=== PATIENT | male | born 1945 ===

== ENCOUNTER 2017-09-05 08:21 | Day surgery (SDC) | payer MEDICARE, OTHER ==
[~2017-09-05 08:21] MED LIST: Lactated Ringers 1,000 ML IV SCH; Lidocaine 1% 4 ML ONE; Lidocaine 1%/Sod Bicarbonate in NS 8.4% 1 ML Syringe IV PRN; Propofol 200 MG/20 ML SDV ONE; Sodium Chloride 0.9% 10 ML Syringe FLUSH PRN
[2017-09-05] MEDS ORDERED: ceFAZolin 1 GM Vial ONE (08:40)
--- NOTE | 2017-09-05 09:59 | PCM.PREANE ---
Preanesthetic Assessment - Anesthesia/Transfusion/Family Hx Anesthesia History: Prior Anesthesia Without Reaction Family History of Anesthesia Reaction: No Transfusion History: No Prior Transfusion(s) Intubation History: Unknown - Review of Systems General: No Symptoms Pulmonary: No Symptoms Cardiovascular: No Symptoms, Other (Hypertension) Gastrointestinal: No Symptoms Neurological: Other (Occasional Back Pain) Other: Reports: Neck Pain (From neck mass.) - Physical Assessment NPO Status Date: 09/04/17 NPO Status Time: 22:00 O2 Sat by Pulse Oximetry: 92 Respiratory Rate: 16 Vital Signs: Last Vital Signs Temp 36.7 C 09/05/17 08:30 Pulse 87 09/05/17 08:30 Resp 16 09/05/17 08:30 BP 178/87 H 09/05/17 08:30 Pulse Ox 92 L 09/05/17 08:30 Height: 1.78 m Weight: 88.451 kg ASA Class: 2 Mental Status: Alert & Oriented x3 Airway Class: Mallampati = 2 Dentition: Reports: Normal Dentition Thyro-Mental Finger Breadths: 2 Mouth Opening Finger Breadths: 3 ROM/Head Extension: Full Lungs: Clear to Auscultation, Normal Respiratory Effort Cardiovascular: Regular Rate, Regular Rhythm - Allergies Allergies/Adverse Reactions: Allergies Allergy/AdvReac Type Severity Reaction Status Date / Time No Known Allergies Allergy Verified 09/04/17 13:45 - Acknowledgements Anesthesia Type Planned: MAC Pt an Appropriate Candidate for the Planned Anesthesia: Yes Alternatives and Risks of Anesthesia Discussed w Pt/Guardian: Yes Pt/Guardian Understands and Agrees with Anesthesia Plan: Yes PreAnesthesia Questionnaire HEENT History: Reports: Other (See Below) Other HEENT History: cerumen impacted Cardiovascular History: Reports: Hypertension Respiratory History: Reports: SOB Gastrointestinal History: Reports: None Genitourinary History: Reports: None SOAP WORKER History: Reports: None Musculoskeletal History: Reports: None Neurological History: Reports: Other (See Below) Other Neuro History: bells palsy Psychiatric History: Reports: None Endocrine/Metabolic History: Reports: None Hematologic History: Reports: None Immunologic History: Reports: None Oncologic (Cancer) History: Reports: None Dermatologic History: Reports: None - Past Surgical History Head Surgeries/Procedures: Reports: None Respiratory Surgical History: Reports: None GI Surgical History: Reports: Cholecystectomy, Colonoscopy Female Surgical History: Reports: None Male Surgical History: Reports: None Endocrine Surgical History: Reports: None Neurological Surgical History: Reports: None Musculoskeletal Surgical History: Reports: None Oncologic Surgical History: Reports: None - SUBSTANCE USE Smoking Status *Q: Never Smoker Recreational Drug Use History: No - HOME MEDS Home Medications: Home Meds Aspirin 81 mg PO DAILY 09/04/17 [History] Cholecalciferol (Vitamin D3) [Vitamin D3] 5,000 unit PO DAILY 09/04/17 [History] Hydrochlorothiazide [Hydrochlorothiazide] 12.5 mg PO DAILY 09/04/17 [History] - CURRENT (IN HOUSE) MEDS Current Meds: Current Medications Lactated Ringer's (Ringers, Lactated) 1,000 mls @ 125 mls/hr IV ASDIRECTED CLAUDE Stop: 09/05/17 23:00 Last Admin: 09/05/17 08:40 Dose: 125 mls/hr Lidocaine/Sodium Bicarbonate (Buffered Lidocaine 1% In Ns 8.4%) 0.25 ml IV ONETIME PRN PRN Reason: Prior to IV Start Stop: 09/05/17 18:00 Last Admin: 09/05/17 08:40 Dose: 0.25 ml Sodium Chloride (Saline Flush) 10 ml FLUSH ASDIRECTED PRN PRN Reason: Keep Vein Open Stop: 09/05/17 18:00 Discontinued Medications Cefazolin Sodium (Ancef) Confirm Administered Dose 2 gm .ROUTE .STK-MED ONE Stop: 09/05/17 08:41 Lidocaine HCl (Xylocaine-Mpf 1%) Confirm Administered Dose 4 mls @ as directed .ROUTE .STK-MED ONE Stop: 09/05/17 07:04 Propofol (Diprivan 20 Ml) Confirm Administered Dose 200 mg .ROUTE .STK-MED ONE Stop: 09/05/17 07:04
[2017-09-05] MEDS ORDERED: Lidocaine 1% with EPINEPHrine 1:100,000 20 ML MDV ONE (10:47)
[2017-09-05] MEDS ORDERED: Bupivacaine 0.5%/EPINEPHrine 1:200,000 50 ML MDV ONE (10:48)
[2017-09-05] MEDS ORDERED: Propofol 200 MG/20 ML SDV ONE (11:46)
--- NOTE | 2017-09-05 12:14 | PCM48HPAN ---
Post Anesthesia Note - EVALUATION WITHIN 48HRS OF ANESTHETIC Vital Signs in Normal Range: Yes Patient Participated in Evaluation: Yes Respiratory Function Stable: Yes Airway Patent: Yes Cardiovascular Function Stable: Yes Hydration Status Stable: Yes Pain Control Satisfactory: Yes Nausea and Vomiting Control Satisfactory: Yes Mental Status Recovered: Yes
--- NOTE | 2017-09-05 12:17 | PCM.OPNOTE ---
- General Post-Op/Procedure Note Date of Surgery/Procedure: 09/05/17 Operative Procedure(s): Excision of a chronically inflamed inclusion cyst posterior neck Findings: Dense scarring surrounding a 3 cm cyst containing sebum Pre Op Diagnosis: Chronically inflamed inclusion cyst Post-Op Diagnosis: Same Anesthesia Technique: Local, MAC Primary Surgeon: Geoff Monique Pathology: Cyst EBL in mLs: 5 Complications: None Condition: Good Free Text/Narrative:: After adequate IV sedation and analgesia with monitoring the patient was placed in the prone position. The base of the posterior neck was prepped and draped sterilely for the procedure. Local analgesia was given into the skin and subcutaneous tissues overlying the large cyst. A 15 blade was used to make an incision through the skin and subcutaneous tissues down to the capsule of the cyst. There was dense scar tissue surrounding the cyst and subcutaneous tissues and skin. I used a combination of the knife and Nicol scissors to a excise the cyst with an elliptical wedge of skin away from the area. Hemostasis was obtained with cautery. I closed the subcutaneous tissues with 2 interrupted 3-0 Vicryl. The skin was closed with 4-0 interrupted nylon. There are no complications. Dermabond was used for the dressing
== END 2017-09-05 12:50 | disposition home or self-care (01) ==
LOC: JD.SDS 08:21
PROVIDERS: ATTEND Surgery
DX: L72.0 Epidermal cyst (principal); I10 Essential (primary) hypertension; R73.03 Prediabetes; E55.9 Vitamin D deficiency, unspecified; Z79.899 Other long term (current) drug therapy
CPT/HCPCS: 21552; 93005; J0690; J7120; 00300; 88304; J2704